=== PATIENT | female | born 1950 | race Caucasian/White ===

== ENCOUNTER → 2023-09-17 06:27 | Day surgery (SDC) | payer MEDICARE, OTHER, SELFPAY | LOC: GI 06:27 | PROVIDERS: ATTENDING PHYSICIAN Internal Medicine | DX: Z12.11 Encounter for screening for malignant neoplasm of colon (principal); K57.30 Diverticulosis of large intestine without perforation or abscess without bleeding; K64.8 Other hemorrhoids; D12.8 Benign neoplasm of rectum; Z86.010 Personal history of colon polyps | CPT/HCPCS: 45380; 88305 ==

== ENCOUNTER → 2023-10-26 09:18 | Outpatient (REF) | payer MEDICARE, OTHER, SELFPAY | LOC: RAD 09:18 | PROVIDERS: ATTENDING PHYSICIAN Physician Assistant Medical | DX: K44.9 Diaphragmatic hernia without obstruction or gangrene (principal); R10.13 Epigastric pain | CPT/HCPCS: 74246 ==

== ENCOUNTER 2024-02-22 06:26 | Day surgery (SDC) | payer MEDICARE, OTHER, SELFPAY | END 2024-02-22 13:40 | disposition home or self-care (01) | LOC: GI 06:26 | PROVIDERS: ATTENDING PHYSICIAN Internal Medicine | DX: R10.13 Epigastric pain (principal); K44.9 Diaphragmatic hernia without obstruction or gangrene; K31.7 Polyp of stomach and duodenum; R93.3 Abnormal findings on diagnostic imaging of other parts of digestive tract | CPT/HCPCS: 43239; 88305 ==

== ENCOUNTER → 2024-06-22 06:33 | Outpatient (REF) | payer MEDICARE, OTHER, SELFPAY | LOC: RAD 06:33 | PROVIDERS: ATTENDING PHYSICIAN Surgery; FAMILY PHYSICIAN Physician Assistant Medical | DX: K44.9 Diaphragmatic hernia without obstruction or gangrene (principal) | CPT/HCPCS: 71260; 74160; Q9967 ==

== ENCOUNTER → 2024-08-05 11:00 | Outpatient (REF) | payer MEDICARE, OTHER, SELFPAY | LOC: HWWDC 11:00 | PROVIDERS: ATTENDING PHYSICIAN Physician Assistant Medical | DX: Z12.31 Encounter for screening mammogram for malignant neoplasm of breast (principal); M81.0 Age-related osteoporosis without current pathological fracture | CPT/HCPCS: 77063; 77067; 77080 ==

== ENCOUNTER → 2024-09-06 06:54 | Outpatient (REF) | payer MEDICARE, OTHER, SELFPAY ==
[2024-09-06 08:41] LABS: Hematocrit 41.9 % (37.0-47.0); Hemoglobin 14.1 g/dL (12.0-16.0); Mean Corp Hgb Conc. 33.7 g/dL (33.0-37.0); Mean Corpuscular Volume 90.9 fL (81.0-99.0); Platelet Count 236 10^3/uL (130-400); Red Cell Dist. Width 13.3 % (11.5-14.5)
[2024-09-06 09:10] LABS: Blood Urea Nitrogen 18 mg/dl (7-17); Calcium 10.0 mg/dl (8.4-10.2); Carbon Dioxide 26 mmol/L (22-30); Chloride 107 mmol/L (98-107); Glucose 105 mg/dl (70-99); Potassium 4.3 mmol/L (3.5-5.1); Sodium 140 mmol/L (135-145); eGFR > 60.00
== END ==
LOC: SDSPAT 06:54
PROVIDERS: ATTENDING PHYSICIAN Surgery; FAMILY PHYSICIAN Physician Assistant Medical
DX: Z01.818 Encounter for other preprocedural examination (principal)
CPT/HCPCS: 36415; 80048; 85027; 86850; 86900; 86901

== ENCOUNTER 2024-09-26 06:11 | Day surgery (SDC) | payer MEDICARE, OTHER, SELFPAY ==
[2024-09-06 14:12] VITALS: BMI 25.5
[2024-09-26] VITALS (14 sets, daily range): BP systolic 0–168; BP diastolic 52–79; BMI 25.5
--- NOTE | 2024-09-26 07:14 | HP.FOC2 ---
Focused History & Physical
Chief Complaint
HPI:
Chief Complaint: Symptomatic paraesophageal hernia
HPI / Indication for Planned Procedure: Patient is a 74-year-old female with a large type III paraesophageal hernia containing nearly the entire stomach has been followed in outpatient evaluation. She has intermittent episodes of bandlike tightness
at the level of her ribs and diaphragm occurring in the afternoon and evening. Symptoms occur less frequently now that she has altered her diet to softer foods and smaller portions. Upper GI contrast imaging has shown a large type III
paraesophageal hernia containing greater than 50% of the stomach and subsequent CT chest/abdomen also identifies a large type III paraesophageal hernia containing nearly entire stomach with a organoaxial positioning and 4.7 cm crural defect.
Patient presents today for scheduled operative correction
Relevant Past Medical History: Other (Hyperlipidemia, osteoporosis, hypertension)
Relevant Social History: Negative
Relevant Family History: Negative
Relevant Past Surgical History: Positive for (hysterectomy)
Review of Systems
Review of Pertinent Systems: All Systems Negative
Medication
See Medication form for detailed medications: Yes
Medication List (including Herbals & OTC):
ascorbic acid (vitamin C) 500 mg tablet (Vitamin C) 500 mg PO DAILY 09/19/24
atorvastatin 10 mg tablet 10 mg PO DAILY 09/19/24
calcium 1 dose PO DAILY 09/19/24
carvedilol 6.25 mg tablet 6.25 mg PO BID 09/19/24
cholecalciferol (vitamin D3) 50 mcg (2,000 unit) tablet (Vitamin D3) 50 mcg PO DAILY 09/19/24
ezetimibe 10 mg tablet 10 mg PO DAILY 09/19/24
Medications Reviewed: Yes
Allergies and Reactions
Patient has Allergies: Yes
Noted Allergies and Reactions:
Allergy/AdvReac Type Severity Reaction Status Date / Time
Cephalosporins Allergy Unknown Unverified 09/19/24 09:02
penicillin G Allergy Rash Unverified 09/19/24 09:02
Penicillins Allergy Rash Unverified 09/19/24 09:02
Sulfa (Sulfonamide Allergy Unknown Unverified 09/19/24 09:02
Antibiotics)
sulfisoxazole Allergy Unknown Unverified 09/19/24 09:02
Pertinent Physical Exam
All Other Systems: Negative
Head/Neck: Normal
Lungs: Normal
Heart: Normal
Abdomen: Normal
Extremities: Normal
Neurological: Normal
Diagnosis / Assessment
74-year-old female presenting for operative correction symptomatic large type III paraesophageal hernia
Plan / Procedure
Robotic assisted laparoscopic repair of paraesophageal hernia with possible mesh, possible fundoplication/gastropexy; EGD
Anesthesia/Sedation to be done by Anesthesia Provider: Yes
--- NOTE | 2024-09-26 07:18 | W.SUR.PREOP ---
Pre-Operative Surgical Note
-
I have examined this patient prior to the performance of the scheduled procedure.
The patient's condition is unchanged from the time of the current History and
Physical and the patient is able to undergo the scheduled procedure.
[2024-09-26] MEDS: TYLENOL 1000 MG PO (10:38)
[2024-09-26] MEDS: NORMOSOL-R/PLASMALYTE-A 1000 IV (10:40)
--- NOTE | 2024-09-26 17:10 | W.IMMPOSTOP ---
Addendum entered and electronically signed by Demetrius Mcallister MD 10/02/24 10:45:
#[id number]
Original Note:
Surgical Immed Post Op Note
-
Primary Surgeon: Demetrius Mcallister MD
Assisting Surgeon: Michelle Savage PA-c
Pre-op Diagnosis: Giant type III paraesophageal hernia
Post-op Diagnosis: Giant type III paraesophageal hernia
Procedure Performed: Robotic assisted laparoscopic repair paraesophageal hernia with Toupet fundoplication and anterior gastropexy; EGD
Anesthesia Type: GETA + 0.25% Marcaine with epi
Specimen / Cultures: None
Estimated Blood Loss: 20mL
Complications: none immediate
Operative Findings: Giant type III paraesophageal hernia essentially containing entire stomach within the hiatal hernia space. Hernia sac and contents completely reduced. Pledgeted posterior crural closure as well as right anterior and left
anterior crural closure nonpledgeted. 56 [place] bougie with Toupet fundoplication. Anterior gastropexy along the greater curvature at junction of body and antrum. Right sided capnothorax from pleural entry during mobilization of right hernia sac
off of proximal esophagus and vagus nerve. Bilateral vagus nerve identified and preserved. Anterior hernia sack resected.
Drain: 19 Galo drain
The assistance of Michelle Savage PA-C was required due to the complexity of the procedure. During the procedure Michelle Savage PA-C assisted with port placement, robotic instrumentation and suture material exchanges, and closure of the surgical incision
sites. I was present for the entirety of the operative procedure.
[2024-09-26] MEDS: DILAUDID 0.25 MG IV (18:52)
[2024-09-26] MEDS: OFIRMEV 100 IV (19:06)
[2024-09-26] MEDS: COREG 6.25 MG PO (21:35)
[2024-09-26] MEDS: ZOFRAN 4 MG IV (21:35)
[2024-09-26] MEDS: NSS 1000 IV (21:35)
[2024-09-26] MEDS: DILAUDID 0.5 MG IV (22:18)
--- NOTE | 2024-09-26 23:41 | PTCARENOTE ---
20:58 pt rec'vd from PACU aaox3, abd assessed with PACU nurse LAP sites glued, dry ,intact, Left J-P drain intact. IVF infusing, pt oriented to unit.
[2024-09-27] VITALS (7 sets, daily range): BP systolic 113–131; BP diastolic 56–67
[2024-09-27] MEDS: OFIRMEV 100 IV ×3 (00:21→13:05)
[2024-09-27] MEDS: ZOFRAN 4 MG IV (03:37)
--- NOTE | 2024-09-27 06:52 | W.PN.GS2 ---
Today's Communication / Plan
-
`
Assessment / Plan
-
Assessment: POD#1 s/p RAL PEH repair with fundoplication, anterior gastropexy; EGD
h/o HTN, hypercholesterolemia
AFVSS
doing well post op
Plan: multimodal pain control options
renew IVF - okay to d/c when moses PO well
clear liquid diet and advance to full liquids this evening; avoid carbonated beverages
OOBTC/ambulate
carvedilol for h/o HTN
zafar out this AM and dvt
LORI to bulb suction - will be removed prior to dc
lovenox/scds/ambulation for VTEp
Subjective Data
-
Date of Service: September 27, 2024
pt seen and examined
post op pain predominantly at left costal margin, upper chest and left scapular area; controlled
initial postop nausea resolved
Objective Data
-
Intake and Output
09/25/24 09/26/24 09/27/24
06:59 06:59 06:59
Intake Total 1140 / 1140
Output Total 660 / 660
Balance 480 / 480
Intake:
Oral fluids 60 / 60
IV fluids (Total) 1075 / 1075
normosol 275 / 275
Amount instilled into Drain ( 5 / 5
Total)
Left Middle Abdomen Carrillo- 5 / 5
Lozano A
Output:
Drain Output (Total) 0 / 0
Left Middle Abdomen Carrillo- 0 / 0
Lozano A
Urine, Zafar 660 / 660
Vital Signs
Temp Pulse Resp BP Pulse Ox
97.7 F 77 17 128/67 93
09/27/24 03:00 09/27/24 03:00 09/27/24 03:00 09/27/24 03:00 09/27/24 03:00
Physical Exam
-
NAD AAOx3
ABD: soft, ND, mild TTP at incision site
incisions with glue dressings, no erythema no drainage
LORI with scant fluid in tubing
Patient has a zafar catheter: No
[2024-09-27 07:14] LABS: Hematocrit 37.8 % (37.0-47.0); Hemoglobin 12.2 g/dL (12.0-16.0); Mean Corp Hgb Conc. 32.3 g/dL (33.0-37.0); Mean Corpuscular Volume 93.3 fL (81.0-99.0); Platelet Count 210 10^3/uL (130-400); Red Cell Dist. Width 13.3 % (11.5-14.5)
[2024-09-27 07:45] LABS: Blood Urea Nitrogen 14 mg/dl (7-17); Calcium 7.8 mg/dl (8.4-10.2); Carbon Dioxide 26 mmol/L (22-30); Chloride 106 mmol/L (98-107); Estimated Creatinine Clearance 57 ml/min; Glucose 145 mg/dl (70-99); Potassium 4.1 mmol/L (3.5-5.1); Sodium 139 mmol/L (135-145); eGFR > 60.00
[2024-09-27] MEDS: COREG 6.25 MG PO ×2 (08:46→19:43)
[2024-09-27] MEDS: PROTONIX IV 40 MG IV (08:46)
[2024-09-27] MEDS: NSS (PRESERVATIVE FREE) 10 ML IV (08:46)
[2024-09-27] MEDS: NSS 1000 IV (08:53)
[2024-09-27] MEDS: ZOFRAN IV ×2 (10:21→17:37)
--- NOTE | 2024-09-27 11:02 | CM ---
CM following re: discharge planning.
Reviewed pt's chart, met with pt and pt's at bedside.
Pt is a 74 year old female, admitted with SDC status and primary dx of POD#1 s/p RAL PEH repair with fundoplication, anterior gastropexy; EGD.
Pt reports she lives with in a condo/townhouse, 2steps to enter, has 3 supportive children. 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 No DME, VN or SNF history.
PCP: Pen[facility] Ch
Pharmacy: [facility]
D/C plan: home with anticipated no needs. to transport at discharge.
CM will follow with discharge plan updates as hospitalization progresses
[2024-09-27] MEDS: DILAUDID 0.5 MG IV ×2 (13:06→22:13)
[2024-09-27] MEDS: LOVENOX 40 MG SC (18:08)
[2024-09-27] MEDS: NSS IV (23:39)
[2024-09-28] MEDS: MYLICON 80 MG PO (04:57)
[2024-09-28] MEDS: TORADOL 10 MG IV (04:57)
[2024-09-28] MEDS: NSS IV (05:42)
[2024-09-28 06:13] LABS: Hematocrit 35.0 % (37.0-47.0); Hemoglobin 11.5 g/dL (12.0-16.0); Mean Corp Hgb Conc. 32.9 g/dL (33.0-37.0); Mean Corpuscular Volume 92.3 fL (81.0-99.0); Platelet Count 200 10^3/uL (130-400); Red Cell Dist. Width 14.0 % (11.5-14.5)
[2024-09-28 06:39] LABS: Blood Urea Nitrogen 12 mg/dl (7-17); Calcium 8.3 mg/dl (8.4-10.2); Carbon Dioxide 28 mmol/L (22-30); Chloride 107 mmol/L (98-107); Estimated Creatinine Clearance 57 ml/min; Glucose 119 mg/dl (70-99); Potassium 4.1 mmol/L (3.5-5.1); Sodium 138 mmol/L (135-145); eGFR > 60.00
[2024-09-28 07:00] VITALS: BP 135/64
[2024-09-28] MEDS: COREG 6.25 MG PO (08:33)
[2024-09-28] MEDS: NSS (PRESERVATIVE FREE) 10 ML IV (08:33)
[2024-09-28] MEDS: PROTONIX IV 40 MG IV (08:33)
[2024-09-28] MEDS: FLUSH (NSS) 2 FLUSH IV (08:35)
--- NOTE | 2024-09-28 09:30 | W.PN.GS2 ---
Today's Communication / Plan
-
DC home
Assessment / Plan
-
Assessment: POD#2 s/p RAL PEH repair with fundoplication, anterior gastropexy; EGD
h/o HTN, hypercholesterolemia
AFVSS
doing well post op
Plan: multimodal pain control options
stop IVF
cont fulls; avoid carbonated beverages
OOBTC/ambulate
carvedilol for h/o HTN
voiding
LORI to bulb suction - removed at bedside
lovenox/scds/ambulation for VTEp
Subjective Data
-
Date of Service: September 28, 2024
AFVSS, pain controlled, ambulating, voiding, denies n/v, moses PO
Objective Data
-
Intake and Output
09/27/24 09/28/24 09/29/24
06:59 06:59 06:59
Intake Total 1140 / 1140 960 / 960 480 / 480
Output Total 660 / 660 500 / 500
Balance 480 / 480 460 / 460 480 / 480
Intake:
Oral fluids 60 / 60 480 / 480
IV fluids (Total) 1075 / 1075 960 / 960
normosol 275 / 275
Amount instilled into Drain ( 5 / 5
Total)
Left Middle Abdomen Carrillo- 5 / 5
Lozano A
Output:
Drain Output (Total) 0 / 0 0 / 0
Left Middle Abdomen Carrillo- 0 / 0 0 / 0
Lozano A
Urine, Zafar 660 / 660
Urine, Voided 500 / 500
Other:
Number of approximated MODERATE 2
amounts of urine
Vital Signs
Temp Pulse Resp BP Pulse Ox
98.5 F 68 16 135/64 93
09/28/24 07:00 09/28/24 08:33 09/28/24 07:00 09/28/24 08:33 09/28/24 07:00
Lab Results
09/28/24 05:25
09/28/24 05:25
Calcium 8.3 mg/dl (8.4-10.2) L 09/28/24 05:25
Physical Exam
-
Gen: NAD
Abd: soft, approp ttp, incisions cdi with glue, drain serous
Patient has a zafar catheter: No
Patient has a central line: No
--- NOTE | 2024-09-28 09:32 | W.DS.TRANS ---
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
-
Discharge Instructions:
Sleep Apnea Risk Low
Discharge Diagnosis/Procedures Robotic assisted laparoscopic repair of
paraesophageal hernia with posterior partial
fundoplication and anterior gastropexy; EGD
Diet Other diet
Additional Diets Post op fundoplication diet as per printed
dietary handout provided. Smaller meals spread
throughout the day. Smaller bite sizes and take
care to chew solid food. Allow time between
swallowing to avoid 'stacking bites'
Activity No strenuous activity
Additional Activity No lifting over 10 pounds for 6 weeks
postoperatively
Driving Restrictions No driving for 2 to 3 days or if using narcotics
Bathing Restrictions OK to Shower
Wound Care Glue at surgical sites typically peels off in 2
to 3 weeks. Remove gauze dressing at LORI site in
24 hours. Cover with Band-Aid as needed for
drainage until dry.
Instructions:
Stand-Alone Forms:
Changes to Home Medications: No
Discharge Medications:
DC Medications w/original date entered in [facility]
ascorbic acid (vitamin C) 500 mg tablet (Vitamin C) 500 mg PO DAILY 09/19/24
atorvastatin 10 mg tablet 10 mg PO DAILY 09/19/24
calcium 1 dose PO DAILY 09/19/24
carvedilol 6.25 mg tablet 6.25 mg PO BID 09/19/24
cholecalciferol (vitamin D3) 50 mcg (2,000 unit) tablet (Vitamin D3) 50 mcg PO DAILY 09/19/24
ezetimibe 10 mg tablet 10 mg PO DAILY 09/19/24
acetaminophen 325 mg tablet 650 mg (2 x 325 mg) PO Q4HPRN PRN mild pain #1 tab 09/27/24
ibuprofen 200 mg tablet 400 mg (2 x 200 mg) PO Q6HPRN PRN moderate pain #1 tab 09/27/24
ondansetron 4 mg disintegrating tablet 4 mg PO Q8HPRN PRN nausea/vomiting #10 tabs 09/27/24
oxycodone 5 mg tablet 5 mg PO Q4HPRN PRN breakthrough/severe pain #5 tabs 09/27/24
polyethylene glycol 3350 17 gram/dose oral powder (Miralax) 4 g PO DAILY PRN Constipation #119 grams 09/27/24
Home Medication Changes
Pending Results: No
--- NOTE | 2024-09-28 10:40 | CM ---
CM following re: discharge planning.
Reviewed pt's chart, met with pt and pt's at bedside.
Pt is POD#2 s/p RAL PEH repair with fundoplication, anterior gastropexy; EGD.
Discharge order noted. Pt is aware, expressed her agreement and she stated her will transport home. Pt still SDC status, no IMM review required.
No after care VN services indicated.
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
D/C plan: home with no after care VN needs. to transport.
== END 2024-09-28 10:57 | disposition home or self-care (01) ==
LOC: SDS 06:11
PROVIDERS: ATTENDING PHYSICIAN Surgery; FAMILY PHYSICIAN Physician Assistant Medical
DX: K44.9 Diaphragmatic hernia without obstruction or gangrene (principal); M81.0 Age-related osteoporosis without current pathological fracture; I10 Essential (primary) hypertension; E78.00 Pure hypercholesterolemia, unspecified; Z79.899 Other long term (current) drug therapy
CPT/HCPCS: 43281; 80048; 85027; 86900; 86901

== ENCOUNTER → 2025-02-24 10:44 | Outpatient (REF) | payer MEDICARE, OTHER, SELFPAY | LOC: RAD 10:44 | PROVIDERS: ATTENDING PHYSICIAN Surgery; FAMILY PHYSICIAN Physician Assistant Medical | DX: Z98.890 Other specified postprocedural states (principal) | CPT/HCPCS: 74246 ==